=== PATIENT | male | born 1990 | race Caucasian/White ===

== ENCOUNTER 2018-03-30 11:13 | Emergency (ER) | payer SELFPAY ==
[2018-03-30 12:04] VITALS: BP 133/83
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
== END 2018-03-30 14:25 | disposition home or self-care (01) ==
LOC: ED 11:13
DX: S16.1XXA Strain of muscle, fascia and tendon at neck level, initial encounter (principal); F17.200 Nicotine dependence, unspecified, uncomplicated; V49.49XA Driver injured in collision with other motor vehicles in traffic accident, initial encounter; Y93.89 Activity, other specified; Y92.89 Other specified places as the place of occurrence of the external cause; Y99.8 Other external cause status
CPT/HCPCS: 99283

== ENCOUNTER 2022-02-20 08:26 | Emergency (ER) | payer SELFPAY ==
--- NOTE | 2022-02-20 11:49 | XRay Report ---
CHEST 1 VIEW INDICATION / CLINICAL INFORMATION: Chest Pain. COMPARISON: None available. FINDINGS: SUPPORT DEVICES: None. HEART / MEDIASTINUM: No significant abnormality. LUNGS / PLEURA: The lungs are clear. No pneumothorax. BONES: No significant osseous abnormality. ADDITIONAL FINDINGS: No significant additional findings. IMPRESSION: 1. No active cardiopulmonary disease. Signer Name: Víctor Kirkpatrick II, MD Signed: 02/20/2022 11:44 AM Workstation Name: [id number]
--- NOTE | 2022-02-20 12:07 | Cat Scan Report ---
CT head/brain wo con INDICATION: weakness. TECHNIQUE: Routine CT head. All CT scans at this location are performed using CT dose reduction for A LUPIS by means of automated exposure control. COMPARISON: None. FINDINGS: Intracranial: Bucio-white matter differentiation is maintained. No intracranial hemorrhage. No extra a xial collection. No hydrocephalus. No herniation. Sinuses: Paranasal sinuses and mastoid air cells are essentially clear. Orbits: Globes are intact. Calvarium: No acute fracture. IMPRESSION: 1. No acute intracranial abnormality. Signer Name: Dada Kruger MD Signed: 02/20/2022 12:03 PM Workstation Name: [id number]
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
[2022-02-20 12:24] LABS: Basophils % (Auto) 0.2 % (0.0-1.8); Eosinophils % (Auto) 0.3 % (0.0-4.3); Hematocrit 42.3 % (35.5-45.6); Hemoglobin 13.9 gm/dl (11.8-15.2); Lymphocytes # (Auto) 0.8 K/mm3 (1.2-5.4); Lymphocytes % (Auto) 7.2 % (13.4-35.0); Mean Corpuscular HGB Conc 33 % (32-34); Mean Corpuscular Volume 80 fl (84-94); Monocytes # (Auto) 0.4 K/mm3 (0.0-0.8); Monocytes % (Auto) 3.8 % (0.0-7.3); Platelet Count 206 K/mm3 (140-440); Red Blood Count 5.32 M/mm3 (3.65-5.03); Red Cell Distribution Width 13.4 % (13.2-15.2)
[2022-02-20 12:33] LABS: Alanine Aminotransferase 37 units/L (7-56); Albumin 3.8 g/dL (3.9-5); Blood Urea Nitrogen 11 mg/dL (9-20); Calcium 9.6 mg/dL (8.4-10.2); Hemolysis Index 1
[2022-02-20 12:43] LABS: BUN/Creatinine Ratio 16
[2022-02-20] MEDS ORDERED: POTASSIUM CHLORIDE ER 20 MEQ TAB PO ONE (13:17)
--- NOTE | 2022-02-20 13:21 | Consultation ---
History of Present Illness Consult date: 02/20/22 History of present illness: [facility] Consult Note # Demographics Consult Type: General Neurology Patient Location: Emergency Room First Name: Diana Last Name: Eze Date of : 1990 Age: 32 Gender: Male Facility: [facility] Time of Initial Page ( Time): 02/20/2022, 12:48 Time of Return Call ( Time): 02/20/2022, 12:49 # HPI History: Per ER Physician note: "The patient woke up this morning with an inability to walk... He denies having any viral-like illness during the last month and a half. He denies fever back pain headache..." Associated Symptoms: no double vision no headache no neck pain no swallowing problems no vision changes # Exam Vitals: 98.3 SBP: 170 DBP: 105 Mental Status: awake alert and oriented x 3 follows commands Language: normal speech Motor: bilateral upper extremity weakness bilateral lower extremity weakness Sensory: normal sensation Additional Neurologic Exam: Evaluation limited due to observational assessment (i.e., deep tendon reflexes). In-person exam may be helpful for more subtle signs that cannot be detected via telemedicine. # ROS Pulmonary: no shortness of breath Cardiovascular: no chest pain Musculoskeletal: no back pain # PMH-FH-SH Past Medical History: denies Social History: smoker Allergies: NKDA # Data Glucose: 123 Other Labs: WBC 11.1, K 1.[address] personally read by me ( Time): 02/20/2022, 12:[address]: no bleed per radiologist read # Assessment Impression: Weakness Rule-out AIDP, possible hypokalemic periodic paralysis (but less common disease, so would empiric treat for AIDP pending diagnostic results) # Plan Thrombolytic/Intervention: NOT IV Thrombolysis or IA Intervention candidate Thrombolytic Exclusion: > 4.5 hours Labs: B12 CBC comprehensive metabolic panel ESR hemoglobin A1c lipid panel thiamine troponin TSH urine drug screen ua Imaging: (urgency: routine): MRI Brain with AND without contrast MRI C spine MRI T spine MRI L spine Diagnostic Test: lumbar puncture: cell count, protein, glucose Opening & closing pressure Therapy/Evaluation: PT/OT evaluation speech/swallow consultation Medication: IVIg 0.4mg/kg daily every other day for five days DVT Prophylaxis: SCD chemical DVT prophylaxis Other: telemetry monitoring I have discussed my recommendations with the referring provider Disposition: admit Medications and Allergies Allergies Allergy/AdvReac Type Severity Reaction Status Date / Time No Known Allergies Allergy Unverified 03/30/18 12:00 Home Medications Medication Instructions Recorded Confirmed Last Taken Type Ibuprofen [Motrin] 800 mg PO Q8HR PRN #30 tablet 03/30/18 Unknown Rx Prednisone [predniSONE 10 mg 10 mg PO .TAPER #1 tab.ds.pk 03/30/18 Unknown Rx (6-Day Pack, 21 Tabs)] traMADoL [Ultram] 50 mg PO Q6HR PRN #24 tablet 03/30/18 Unknown Rx Active Meds: Active Medications Potassium Chloride (Kcl 10meq/100ml) 10 meq in 100 mls @ 100 mls/hr IV Q1H PROSPER Stop: 02/20/22 15:59 Physical Examination - Vital Signs Vital Signs: Vital Signs Temp Pulse Resp BP Pulse Ox 98.3 F 107 H 16 170/105 98 02/20/22 08:42 02/20/22 08:42 02/20/22 08:42 02/20/22 08:42 02/20/22 08:42 Results - Laboratory Findings CBC and BMP: 02/20/22 11:35 02/20/22 11:35 Abnormal Lab Findings: Abnormal Labs 02/20/22 02/20/22 02/20/22 11:35 11:35 11:35 WBC 11.1 H RBC 5.32 H MCV 80 L MCH 26 L Lymph % (Auto) 7.2 L Lymph # (Auto) 0.8 L Seg Neutrophils % 88.5 H Seg Neutrophils # 9.9 H Potassium 1.8 L* Chloride 109.0 H Carbon Dioxide 19 L Creatinine 0.7 L Glucose 123 H Lactic Acid 3.00 H* Albumin 3.8 L
[2022-02-20] MEDS: POTASSIUM CHLORIDE 10 MEQ 10 MEQ/100 ML BAG IV SCH ×2 (13:32→14:36)
[2022-02-20] MEDS ORDERED: IMMUNE GLOBULIN G/GLY/IGA AVG 46 10 GM/100 ML VIAL IV ONE (14:00)
[2022-02-20] MEDS ORDERED: IMMUNE GLOBULIN G/GLY/IGA AVG 46 20 GM/200 ML VIAL IV ONE (15:00)
[2022-02-20 15:23] LABS: ABG Base Excess -4.2 mmol/L (-2.0-3.0); ABG HCO3 20.3 mmol/L (20.0-26.0); ABG Methemoglobin 0.5 % (0.0-1.5); ABG Oxygen Saturation 96.9 % (95.0-99.0); ABG PCO2 35.3 mm Hg; ABG PH 7.377 pH Units (7.350-7.450); ABG PO2 89.9 mm Hg (80.0-90.0)
[2022-02-20] MEDS ORDERED: POTASSIUM CHLORIDE 10 MEQ 10 MEQ/100 ML BAG IV SCH (16:00)
[2022-02-20 16:39] VITALS: BP 144/68
--- NOTE | 2022-02-21 12:51 | Electrocardiograph Report ---
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
== END 2022-02-20 16:45 | disposition short-term general hospital (02) ==
LOC: ED 08:26
DX: G83.9 Paralytic syndrome, unspecified (principal); F17.200 Nicotine dependence, unspecified, uncomplicated; Z72.89 Other problems related to lifestyle; Z79.899 Other long term (current) drug therapy
CPT/HCPCS: 36415; 70450; 71045; 80053; 82140; 82803; 84484; 85025; 87040; 93005; 96360; 96361; 99291; J1561; J3480; 96365; 99285